=== PATIENT | male | born 1965 | race Caucasian/White ===

== ENCOUNTER 2020-10-27 15:14 | Inpatient (IN) | payer BC ==
[~2020-10-27] VITALS: Ht 177.8 cm; Wt 78.2 kg
[~2020-10-27 15:14] MED LIST: ALPR0.255 PO; ALPR1TAB7 PO; CLIN300C12 PO; CLOP75TA15 PO; METO-356 PO; METO25TA6 PO; QUET300T2 PO; ROSU5TAB PO; ZALE10CA28 PO
--- NOTE | 2020-10-27 15:21 | NUR ---
Patient arrived via RA 99 for palpitations, patient able to transfer from [facility] to [facility] with assistance, MD at bedside for assessment
[2020-10-27] MEDS ORDERED: IV NORMAL SALINE 1000 ML BAG IV ONE (15:30)
[2020-10-27] MEDS ORDERED: OXYC-133 PO (15:34)
[2020-10-27] MEDS ORDERED: ASPI81TA31 PO (15:34)
[2020-10-27] MEDS ORDERED: ALPR2TAB7 PO (15:34)
[2020-10-27] MEDS ORDERED: FLUO10CA26 PO (15:34)
[2020-10-27] MEDS ORDERED: CYCL15CA23 PO (15:34)
--- NOTE | 2020-10-27 15:37 | NUR ---
Patient noted being transfered to radiology for CT
[2020-10-27 15:53] LABS: BASOPHILS % (AUTO) 0.3 % (0.0-2.0); EOSINOPHILS % (AUTO) 0.3 % (0.0-7.0); HEMATOCRIT 55.9 % (36.7-47.1); HEMOGLOBIN 19.1 g/dL (12.5-16.3); LYMPHOCYTES # (AUTO) 2.1 K/uL (20.0-40.0); LYMPHOCYTES % (AUTO) 17.1 % (20.5-51.5); MEAN CORPUSCULAR HEMOGLOBIN 30.4 uug (23.8-33.4); MEAN CORPUSCULAR HGB CONC 34 g/dL (32.5-36.3); MONOCYTES # (AUTO) 1.3 K/uL (2.0-10.0); MONOCYTES % (AUTO) 10.5 % (0.0-11.0); NEUTROPHILS # (AUTO) 8.9 K/uL (1.8-8.9); NEUTROPHILS % (AUTO) 71.8 % (38.5-71.5); PLATELET COUNT (AUTO) 348 K/uL (152-348); RED BLOOD CELL COUNT(AUTO) 6.28 MIL/uL (4.06-5.63); WHITE BLOOD COUNT (AUTO) 12.4 K/uL (3.6-10.2)
[2020-10-27 16:01] LABS: CARBON DIOXIDE 24 mmol/L (21-32); CHLORIDE 101 mmol/L (98-107); CREATININE 0.9 mg/dL (0.6-1.3); GLUCOSE 105 mg/dL (74-106); UREA NITROGEN, BLOOD 16 mg/dL (7-18)
[2020-10-27 16:06] LABS: ALANINE AMINOTRANSFERASE 22 U/L (16-63); ALKALINE PHOSPHATASE 83 U/L (50-136); ASPARTATE AMINOTRANSFERASE 14 U/L (15-37); BILIRUBIN,DIRECT 0.1 mg/dL (0.0-0.2); BILIRUBIN,TOTAL 0.5 mg/dL (0.2-1.0)
[2020-10-27 16:07] LABS: ETHANOL < 3 MG/DL (0-0)
[2020-10-27 16:08] LABS: ACETAMINOPHEN < 2.0 ug/mL (10-30)
[2020-10-27 16:39] LABS: THYROID STIMULATING HORMONE 2.423 mIU/mL (0.358-3.740)
[2020-10-27] MEDS ORDERED: ONDANSETRON 4 MG/2 ML VIAL IV PRN (18:15)
[2020-10-27] MEDS ORDERED: MAGNESIUM HYDROXIDE 30 ML LIQUID UDC PO PRN (18:15)
[2020-10-27] MEDS ORDERED: ACETAMINOPHEN 325 MG TABLET PO PRN (18:15)
--- NOTE | 2020-10-27 18:16 | NUR ---
patient unable to given urine at this time, covid swab taken and sent to lab
--- NOTE | 2020-10-27 20:05 | NUR ---
Pt. admitted to Med/Surg, under care of Latha Ryder Belongs List completed
--- NOTE | 2020-10-27 20:30 | NUR ---
Received patient via gurney from ED. Admitted for FTT. No s/s of acute distress noted at this time. Patient is AAOX2-3, confused at times. Pt on RA denies SOB. concrete analyst in place, NSR. Provided patient with reorientation to the unit. Safety measures and precautions in place. Bed alarm on, locked in place, and call light within reach.
[2020-10-27] MEDS: CLOPIDOGREL 75 MG TABLET PO SCH (21:42)
[2020-10-27] MEDS: ASPIRIN 81 MG TAB.CHEW PO SCH (21:42)
[2020-10-27] MEDS: FLUOXETINE HCL 10 MG CAPSULE PO SCH (21:42)
[2020-10-27] MEDS: ATORVASTATIN 20 MG TABLET PO SCH (21:42)
[2020-10-27] MEDS: IV NS 1000 ML 1,000 ML IV PRN (21:43)
[2020-10-27 22:30] VITALS: BP 124/78
[2020-10-27] MEDS: METOPROLOL SUCCINATE XL 25 MG TAB.SR.24H PO SCH (22:55)
[2020-10-27] MEDS: ALPRAZOLAM 0.25 MG TABLET PO SCH (22:56)
[2020-10-28] MEDS ORDERED: QUETIAPINE FUMARATE 25 MG TABLET PO ONE
[2020-10-28 00:06] VITALS: BP 124/78
[2020-10-28 04:04] VITALS: BP 127/61
--- NOTE | 2020-10-28 04:10 | NUR ---
Pt yelling out, upset, and agitated. Multiple attempts to redirect and reduce stimuli failed. Notified masonry supervisor physician, PINA Hi. New orders given for Haldol 5mg IM one time. Will administer and continue to monitor patient for s/s of adverse reactions and monitor for safety.
[2020-10-28] MEDS ORDERED: HALOPERIDOL LACTATE 5 MG/1 ML VIAL ONE (04:26)
[2020-10-28] MEDS ORDERED: HALOPERIDOL LACTATE 5 MG/1 ML VIAL IM ONE (04:30)
[2020-10-28 06:20] LABS: BASOPHILS % (AUTO) 0.6 % (0.0-2.0); EOSINOPHILS # (AUTO) 0.1 K/uL (0.0-0.7); EOSINOPHILS % (AUTO) 0.8 % (0.0-7.0); HEMATOCRIT 49.6 % (36.7-47.1); HEMOGLOBIN 16.8 g/dL (12.5-16.3); LYMPHOCYTES # (AUTO) 1.9 K/uL (20.0-40.0); LYMPHOCYTES % (AUTO) 22.7 % (20.5-51.5); MEAN CORPUSCULAR HEMOGLOBIN 30.7 uug (23.8-33.4); MEAN CORPUSCULAR HGB CONC 34 g/dL (32.5-36.3); MEAN CORPUSCULAR VOLUME 90.6 fL (73.0-96.2); MONOCYTES # (AUTO) 0.9 K/uL (2.0-10.0); MONOCYTES % (AUTO) 10.4 % (0.0-11.0); NEUTROPHILS # (AUTO) 5.4 K/uL (1.8-8.9); NEUTROPHILS % (AUTO) 65.5 % (38.5-71.5); PLATELET COUNT (AUTO) 271 K/uL (152-348); RED BLOOD CELL COUNT(AUTO) 5.47 MIL/uL (4.06-5.63); WHITE BLOOD COUNT (AUTO) 8.2 K/uL (3.6-10.2)
--- NOTE | 2020-10-28 06:46 | NUR ---
Patient now resting intermittently. Pt AAOx2-3, disoriented at times yelling out. Continued to provide reorientation. No s/s of acute distress noted at this time. Pt on RA denies SOB. Tele monitor on, NSR and EKG completed this morning. Right FA IV patent and intact. All patient needs were met and attended to. Safety measures maintained and bed alarm on, will endorse to oncoming nurse.
[2020-10-28 07:00] LABS: CREATININE 0.8 mg/dL (0.6-1.3); MAGNESIUM 2.3 mg/dL (1.8-2.4); PHOSPHOROUS 2.3 mg/dL (2.5-4.9); POTASSIUM 3.5 mmol/L (3.5-5.1)
--- NOTE | 2020-10-28 08:00 | NUR ---
CONTINUE 1:1 SITTER AT BEDSIDE, PATIENT STILL NOTED TO BE CONFUSED, MUMBLING TO HIMSELF WITH EYES CLOSED. AWARE THAT HE IS AT [facility], KNOWS HIS NAME, ABLE TO FOLLOW SIMPLE COMMANDS. AWAITING PSYCH CONSULT. DENIES PAIN OR SOB, SR ON MONITOR
[2020-10-28] MEDS: ALPRAZOLAM 0.25 MG TABLET PO SCH ×3 (08:34→17:07)
[2020-10-28] MEDS: ASPIRIN 81 MG TAB.CHEW PO SCH (08:34)
[2020-10-28] MEDS: FLUOXETINE HCL 10 MG CAPSULE PO SCH (08:34)
[2020-10-28] MEDS: CLOPIDOGREL 75 MG TABLET PO SCH (08:35)
[2020-10-28] MEDS: METOPROLOL SUCCINATE XL 25 MG TAB.SR.24H PO SCH (08:38)
[2020-10-28] MEDS: IV NS 1000 ML 1,000 ML IV PRN ×2 (08:48→20:08)
[2020-10-28] MEDS ORDERED: METOPROLOL SUCCINATE XL 25 MG TAB.SR.24H PO SCH (09:00)
--- NOTE | 2020-10-28 11:11 | NUR ---
SEEN BY PINA MELENDEZ FOR FOLLOW-UP ORDERED PSYCH EVAL FOR CONSULT, CONTINUE 1:1 SITTER.
[2020-10-28 12:00] VITALS: BP 112/72
[2020-10-28] MEDS ORDERED: NEUTRA PHOS PACKET PO ONE (12:45)
--- NOTE | 2020-10-28 14:40 | NUR ---
Liability Claims Representative Note: This SW met with the patient today to complete an SS assessment. Reason for assessment is hx of drug use. Patient is a 55 year old male who was BIB by ambulance to the ED, after patient called 911. Patient reports weakness, anxiety, not being able to get out of bed for nearly 10 days, and heart palpitations. 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 When SW entered the patient's room, patient was awake, receptive to speaking with this SW. Patient is oriented x 2-3. Patient knows his name, location, and reason for hospitalization. Patient knew the year, but not the month or day. When asked who the President was, patient stated "Marley". Patient lives alone [place] [id number] [place], [place] [address] [address]. 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 When asked who his employer was, patient stated "I work for myself". Patient has his father Gene listed as his person to contact, , and provided this SW verbal consent to disclose information to patient's father. Patient reports being independent with all ADL's prior to this hospitalization. Patient reports hx of cocaine use, reporting that he last used about 5-7 days ago. Patient could not provide how long he had been using cocaine for. Patient denied use of alcohol or any other drugs, however reported being a smoker for the past 30 years, and deciding to quit about 5 days ago. Patient has never been , and does not have children, however has 5 siblings and about 11-12 nieces and nephews. SW generated a discussion about substance abuse treatment, and patient stated that he has been in treatment in the past, but they haven't worked too well for him. SW offered to provide patient with additional resources on substance abuse treatment, and patient was receptive. Patient denied hx of psychiatric diagnosis, but reported seeking therapy in the past due to some of the challenges her faced when growing up. Discharge plans discussed, and patient would like to return home after this hospitalization. At this time, psychiatry consult is pending. SW to follow-up with the patient and provide him with community resources.
[2020-10-28] MEDS ORDERED: ZOLPIDEM 5 MG TABLET PO PRN (14:45)
[2020-10-28 16:27] VITALS: BP 114/62
[2020-10-28 20:00] VITALS: BP 120/63
[2020-10-28] MEDS: ATORVASTATIN 20 MG TABLET PO SCH (20:03)
[2020-10-29] VITALS: BP 101/68
--- NOTE | 2020-10-29 03:31 | NUR ---
Pt is currently resting in bed. Received AOX2 with sitter at bedside. Pt has been calm throughout shift so far and denies pain or SOB. Does not appear to be having any anxiety at this time. Pt is SR on monitor. On RA sating at 94%. Bed is locked and in lowest position, call light is within reach. No other issues or concerns at this time.
[2020-10-29 04:00] VITALS: BP 107/66
[2020-10-29] MEDS ORDERED: diphenhydrAMINE 25 MG CAP PO ONE (04:30)
[2020-10-29] MEDS: IV NS 1000 ML 1,000 ML IV PRN ×2 (06:05→17:31)
[2020-10-29 07:40] LABS: CREATININE 0.8 mg/dL (0.6-1.3); PHOSPHOROUS 2.4 mg/dL (2.5-4.9); POTASSIUM 3.7 mmol/L (3.5-5.1)
[2020-10-29] MEDS: ALPRAZOLAM 0.25 MG TABLET PO SCH ×2 (08:43→12:54)
[2020-10-29] MEDS: ASPIRIN 81 MG TAB.CHEW PO SCH (08:43)
[2020-10-29] MEDS: CLOPIDOGREL 75 MG TABLET PO SCH (08:43)
[2020-10-29] MEDS: METOPROLOL SUCCINATE XL 25 MG TAB.SR.24H PO SCH (08:44)
[2020-10-29] MEDS ORDERED: FLUOXETINE HCL 20 MG CAPSULE PO SCH (09:00)
[2020-10-29] MEDS ORDERED: FLUOXETINE HCL 10 MG CAPSULE PO SCH (09:00)
[2020-10-29] MEDS ORDERED: LORAZEPAM 2 MG/1 ML VIAL IV ONE (10:30)
[2020-10-29 12:00] VITALS: BP 105/52
--- NOTE | 2020-10-29 12:08 | NUR ---
SW met with the patient today, to provide him with community resources. Patient is awake, alert, oriented, receptive to speaking with this SW. SW provided patient with the following resources for substance abuse treatment programs: [facility], [address] [place] [address]. [place] [address], ; [facility] [address] [facility] [place] [address], ; [facility] [address] [place] [address]. [place] [address], ; [facility] [address] [place] [address], ; [facility] [address] [facility] [place] [address], . Patient was receptive, and stated that he wants to physically get stronger first before starting treatment, but expressed appreciation for the resources provided. SW explored additional psychosocial needs for the patient, and patient stated not have any other concerns or needs at this time. No further SS interventions needed at this time, however SW will remain available, as needed.
[2020-10-29] MEDS ORDERED: NEUTRA PHOS PACKET PO ONE (14:45)
[2020-10-29] MEDS ORDERED: LORAZEPAM 2 MG/1 ML VIAL IV PRN (15:45)
[2020-10-29 16:09] VITALS: BP 103/64
--- NOTE | 2020-10-29 18:33 | NUR ---
PLEASANT AND COOPERATIVE. VSS. DISCUSSED DISCHARGE PLAN TO THE ACUTE REHAB UNIT. VERBALIZED UNDERSTANDING OF PLAN. IV FLUSHED AND PATENT. MD AWARE OF TRANSFER. MEDICATION GIVEN PRESCRIBED. SAFETY PRECAUTIONS IN PLACE. WILL ENDORSE TO ADMITTING ARU NURSE. WILL CONTINUE TO MONITOR.
[2020-10-29] MEDS ORDERED: ACET-2154 PO (19:48)
[2020-10-29] MEDS ORDERED: ATOR20TA PO (20:00)
[2020-10-29] MEDS ORDERED: ONDA4VIA52 IM (20:00)
[2020-10-29] MEDS ORDERED: NORM100I4 IV (20:00)
[2020-10-29] MEDS ORDERED: ZOLP10TA2 PO (20:00)
[2020-10-29] MEDS ORDERED: CLOP75TA15 PO (20:00)
[2020-10-29] MEDS ORDERED: MAGN400O6 PO (20:00)
[2020-10-30] MEDS ORDERED: ALPRAZOLAM 0.25 MG TABLET PO SCH (09:00)
== END 2020-10-29 18:35 | DRG 917 ==
LOC: ER 15:15 → MEDSURG3 20:06 → TELE3 22:10
PROVIDERS: ADMIT Nurse Practitioner Acute Care; ATTEND Nurse Practitioner Acute Care
DX: T42.4X1A Poisoning by benzodiazepines, accidental (unintentional), initial encounter (principal); G92 Toxic encephalopathy; F33.2 Major depressive disorder, recurrent severe without psychotic features; F13.239 Sedative, hypnotic or anxiolytic dependence with withdrawal, unspecified; E86.0 Dehydration; R62.7 Adult failure to thrive; I25.10 Atherosclerotic heart disease of native coronary artery without angina pectoris; F41.9 Anxiety disorder, unspecified; Z95.5 Presence of coronary angioplasty implant and graft; F14.10 Cocaine abuse, uncomplicated; Z79.02 Long term (current) use of antithrombotics/antiplatelets; Z79.82 Long term (current) use of aspirin; Z86.73 Personal history of transient ischemic attack (TIA), and cerebral infarction without residual deficits; D72.829 Elevated white blood cell count, unspecified; R53.1 Weakness; F29 Unspecified psychosis not due to a substance or known physiological condition; Z20.822 Contact with and (suspected) exposure to COVID-19; Y92.009 Unspecified place in unspecified non-institutional (private) residence as the place of occurrence of the external cause; Z68.24 Body mass index [BMI] 24.0-24.9, adult
CPT/HCPCS: 36415; 70030-TC; 70450; 71045; 72125; 83605; 83735; 84100; 84443; 85025; 85730; 87040; 93005; 93307; G0378; G0480; J1630; J2060; J7030; Q0163

== ENCOUNTER 2020-10-29 15:42 | Inpatient (IN) | payer BC ==
[~2020-10-29] VITALS: Ht 177.8 cm; Wt 81.6 kg
[~2020-10-29 15:42] MED LIST changes: +ALPR2TAB7 PO; +ASPI81TA31 PO; -CLIN300C12 PO; +CYCL15CA23 PO; +FLUO10CA26 PO; -METO25TA6 PO; +OXYC-133 PO
[2020-10-29] MEDS ORDERED: Z GUARD REMEDY PASTE 57 GM TUBE TOP PRN (19:45)
[2020-10-29] MEDS ORDERED: ACET-2154 PO (19:48)
[2020-10-29] MEDS ORDERED: NORM100I4 IV (20:00)
[2020-10-29] MEDS ORDERED: ZOLP10TA2 PO (20:00)
[2020-10-29] MEDS ORDERED: ATOR20TA PO (20:00)
[2020-10-29] MEDS ORDERED: CLOP75TA15 PO (20:00)
[2020-10-29] MEDS ORDERED: MAGN400O6 PO (20:00)
[2020-10-29] MEDS ORDERED: ONDA4VIA52 IM (20:00)
[2020-10-29 20:17] VITALS: BP 116/69
--- NOTE | 2020-10-29 20:30 | NUR ---
Relieved report from day shift nurse. Pt admitted ARU DX: Generalized weakness, debility. No s/s of acute distress noted at this time. Patient is AAOX4. Pt on RA denies SOB. Provided patient with reorientation to the unit. MD environmental remediation specialist made aware pending med recon. Dr. Powell notified of new admission orders. Skin assessment completed, skin intact. Belongings list completed and placed in chart. Safety measures and precautions in place. Bed alarm on, locked in place, and call light within reach. Routine admission care done. Plan of care initiated.
[2020-10-29] MEDS ORDERED: ATORVASTATIN 20 MG TABLET PO SCH (21:00)
[2020-10-29] MEDS ORDERED: QUETIAPINE FUMARATE 100 MG TABLET PO SCH (21:00)
[2020-10-29] MEDS: LORAZEPAM 1 MG TABLET PO PRN (21:49)
[2020-10-29] MEDS ORDERED: ALPRAZOLAM 0.25 MG TABLET PO ONE (23:00)
--- NOTE | 2020-10-29 23:00 | NUR ---
Pt has been concerned about receiving Ativan and Xanax. Notified Dr. Latha Ryder, with new orders. All due medication administered. Pt remains calm at the moment and denies pain or SOB. Does not appear to be having any anxiety at this time. Bed is locked and in lowest position, call light is within reach. No other issues or concerns at this time.
--- NOTE | 2020-10-30 01:53 | NUR ---
Administered Xanax, per pt request, unable to sleep. Will continue to monitor throughout the night.
[2020-10-30 05:11] VITALS: BP 108/65
[2020-10-30 08:00] VITALS: BP 111/64
[2020-10-30 08:28] VITALS: BP 111/65
[2020-10-30] MEDS ORDERED: FLUOXETINE HCL 20 MG CAPSULE PO SCH (09:00)
[2020-10-30] MEDS ORDERED: ASPIRIN 81 MG TAB.CHEW PO SCH (09:00)
[2020-10-30] MEDS ORDERED: METOPROLOL SUCCINATE XL 25 MG TAB.SR.24H PO SCH ×2 (09:00)
[2020-10-30] MEDS ORDERED: CLOPIDOGREL 75 MG TABLET PO SCH (09:00)
[2020-10-30] MEDS: LORAZEPAM 1 MG TABLET PO PRN (10:56)
--- NOTE | 2020-10-30 10:56 | NUR ---
PATIENT ALERT AND ORIENTED STATED FEELING ANXIOUS MEDICATED WITH ATIVAN PO ORDERED REASSURED AND MADE COMFORTABLE WILL CONTINUE TO OBSERVE.
--- NOTE | 2020-10-30 12:27 | NUR ---
PATIENT IS EXPRESSING THAT HE WILL NOT BE ABLE TO STAY HERE IN THE HOSPITAL FOR 2 WEEKS BECAUSE HE DOES NOT HAVE CLOTHES TO WEAR ASKED HIM IF HE HAS ANYONE THAT CAN DROP OFF SOME CLOTHES FOR HIM STATED HE HAS NO ONE SO I FOUND HIM SOME TOPS BUT WAS UNABLE TO FIND PANTS ADVISED HIM TO MANAGE THE HOSPITAL PJ FOR NOW ENCOURAGED HIM TO PARTICIPATE IN THE PT/OT SERVICES ORDERED FOR HIS BENEFIT FOR NOW ADVISED HIM THAT HE DID NOT HAVE TO STAY HERE FOR 2 WEEKS BUT TO GIVE HIS RECOVERY AND THERAPY A CHANCE AND IF HE IS GETTING BETTER FASTER THEN HE MIGHT BE DISCHARGED SOONER AND HE EXPRESSED UNDERSTANDING.
--- NOTE | 2020-10-30 14:15 | NUR ---
CALLED AND SPOKE WITH CHUCK THE REHAB COLOR DEPOSITING MACHINE TENDER MEDICAL COST CONSULTANT AND HE STATED THAT IT WAS OKAY FOR THE PATIENT TO GO OUT ON PASS AND THAT PATIENT HAS INFORMED HIM THAT HE NEEDED TO SEE HIS AUDIO EXPERIENCE EXPERT FOR SOME HOUSE WORK AND THAT IT WAS OKAY FOR HIM TO GO FOR 4 HOURS HE JUST NEEDED TO SIGN THE OUT ON PASS FORM PATIENT NOTIFIED
--- NOTE | 2020-10-30 14:30 | NUR ---
PATIENT SIGNED THE PASS RELEASE FORM AND ESCORTED TO THE FRONT LOBBY AND WAS PICKED UP BY HIS FRIEND MIROSLAVA CORNER FORMER STATED WILL CALL ME SOON HE HAS SITUATED HIS ISSUES.
--- NOTE | 2020-10-30 16:30 | NUR ---
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
--- NOTE | 2020-10-30 17:24 | NUR ---
DR RUIZ HERE AND AWARE THAT PATIENT IS STILL OUT ON PASS AT THIS TIME
--- NOTE | 2020-10-30 18:30 | NUR ---
CALLED PATIENT AND INQUIRED FROM HIM WHEN HE WAS COMING BACK AND HE STATED NOT TONIGHT BECAUSE HE IS NOT FINISHED WITH WHAT HE IS DOING AT HIS HOUSE WILL CALL US TOMORROW TO LET US KNOW HIS DECISION SO CALLED CHUCK THE REHAB DOLLY DRIVER AND AL HELLER BOTH NOTIFIED THAT PATIENT HAS DECIDED NOT TO COME BACK TODAY
--- NOTE | 2020-10-30 18:53 | NUR ---
CALL RECEIVED FROM CHUCK COMMODITY ANALYST STATED PATIENT SHOULD BE DISCHARGED FROM THE SYSTEM AMA
== END 2020-10-30 18:54 | disposition left against medical advice (07) | DRG 947 ==
PROVIDERS: ADMIT Physical Medicine & Rehabilitation Pain Medicine; ATTEND Physical Medicine & Rehabilitation Pain Medicine
DX: R53.1 Weakness (principal); G92 Toxic encephalopathy; F13.259 Sedative, hypnotic or anxiolytic dependence with sedative, hypnotic or anxiolytic-induced psychotic disorder, unspecified; E86.0 Dehydration; F14.10 Cocaine abuse, uncomplicated; F41.9 Anxiety disorder, unspecified; R62.7 Adult failure to thrive; F32.9 Major depressive disorder, single episode, unspecified; Z95.5 Presence of coronary angioplasty implant and graft; Z86.73 Personal history of transient ischemic attack (TIA), and cerebral infarction without residual deficits; I25.10 Atherosclerotic heart disease of native coronary artery without angina pectoris

== ENCOUNTER 2021-03-26 09:34 | Emergency (ER) | payer BC ==
[~2021-03-26] VITALS: Ht 180.3 cm; Wt 90.7 kg
[~2021-03-26 09:34] MED LIST changes: +ACET-2154 PO; +ATOR20TA PO; +MAGN400O6 PO; +NORM100I4 IV; +ONDA4VIA52 IM; -ZALE10CA28 PO; +ZOLP10TA2 PO
[2021-03-26] MEDS ORDERED: LIDOCAINE 5% PATCH TD ONE ×2 (10:00→10:15)
[2021-03-26] MEDS ORDERED: ONDANSETRON 4 MG/2 ML VIAL IV ONE (10:00)
[2021-03-26] MEDS ORDERED: IV NORMAL SALINE 1000 ML BAG IV ONE (10:00)
[2021-03-26] MEDS ORDERED: CARB-110 PO (10:03)
[2021-03-26] MEDS ORDERED: LORA2TAB95 PO (10:03)
[2021-03-26] MEDS ORDERED: ZAFI20TA13 PO (10:03)
[2021-03-26] MEDS ORDERED: ONDANSETRON 4 MG/2 ML VIAL ONE (10:15)
[2021-03-26 10:17] LABS: HEMATOCRIT 50.1 % (36.7-47.1); MEAN CORPUSCULAR HEMOGLOBIN 31.4 uug (23.8-33.4); MEAN CORPUSCULAR VOLUME 90.2 fL (73.0-96.2); PLATELET COUNT (AUTO) 296 K/uL (152-348)
[2021-03-26 10:23] LABS: POTASSIUM 3.8 mmol/L (3.5-5.1)
[2021-03-26 10:25] LABS: ETHANOL < 3 MG/DL (0-0)
[2021-03-26 10:29] LABS: BILIRUBIN,DIRECT 0.1 mg/dL (0.0-0.2); BILIRUBIN,TOTAL 0.7 mg/dL (0.2-1.0); TOTAL PROTEIN, SERUM 8.3 g/dL (6.4-8.2)
--- NOTE | 2021-03-26 10:29 | NUR ---
Pt YONY VELASQUEZ, reports pt had cocaine approx 60 hours ago, feels like he is "withdrawing." Usually uses benzos but has not taken any for 4 days, has not eaten in 5 days. Pt also c/o distended stomach and dysuria. Pt denies CP, SOB, dizziness, no distress noted, but pt appears very anxious.
[2021-03-26] MEDS ORDERED: MORPHINE SULFATE 4 MG/1 ML DISP.SYRIN IV ONE (11:00)
[2021-03-26] MEDS ORDERED: MORPHINE SULFATE 4 MG/1 ML DISP.SYRIN ONE (11:30)
[2021-03-26] MEDS ORDERED: LORAZEPAM 0.5 MG TABLET PO ONE (11:30)
[2021-03-26 11:46] LABS: *BILIRUBIN,URIN NEGATIVE (NEGATIVE); *BLOOD, URINE NEGATIVE (NEGATIVE); *CLARITY,URINE CLEAR (CLEAR); *COLOR,URINE YELLOW (YELLOW); *KETONES,URINE 1+ (NEGATIVE); *UROBILINOGEN,URINE 0.2 E.U./dl (NORMAL); LEUKOCYTE ESTERASE ,URINE NEGATIVE (NEGATIVE); NITRITE, URINE NEGATIVE (NEGATIVE); UGLUCOSE NEGATIVE (NEGATIVE)
[2021-03-26] MEDS ORDERED: LORAZEPAM 0.5 MG TABLET ONE (11:52)
[2021-03-26] MEDS ORDERED: HYDR-3641 GT (12:03)
[2021-03-26] MEDS ORDERED: ONDA4TAB5 PO (12:03)
[2021-03-26] MEDS ORDERED: ACET-2154 PO (12:03)
[2021-03-26 12:24] LABS: *AMPHETAMINE, URINE NEGATIVE (NEGATIVE); *CANNABINOID, URINE NEGATIVE (NEGATIVE); *COCCAINE, URINE POSITIVE (NEGATIVE); *OPIATE, URINE NEGATIVE (NEGATIVE); *PHENCYCLIDINE SCREEN,URINE NEGATIVE (NEGATIVE)
--- NOTE | 2021-03-26 12:40 | NUR ---
Removed IV intact, site okay, bandaged.
--- NOTE | 2021-03-26 12:50 | NUR ---
Gave pt RX and d/c instructions, pt verbalized understanding.
[2021-03-26 13:01] VITALS: BP 135/85
[2021-03-27] MEDS ORDERED: CYCL10TA9 PO (23:28)
== END 2021-03-26 13:00 | disposition home or self-care (01) ==
LOC: ER 09:36
DX: N20.0 Calculus of kidney (principal); F41.0 Panic disorder [episodic paroxysmal anxiety]; K76.0 Fatty (change of) liver, not elsewhere classified; I10 Essential (primary) hypertension; Z79.82 Long term (current) use of aspirin; Z79.899 Other long term (current) drug therapy; Z79.02 Long term (current) use of antithrombotics/antiplatelets; I25.10 Atherosclerotic heart disease of native coronary artery without angina pectoris; Z95.5 Presence of coronary angioplasty implant and graft; F14.10 Cocaine abuse, uncomplicated; I25.2 Old myocardial infarction; Z86.73 Personal history of transient ischemic attack (TIA), and cerebral infarction without residual deficits
CPT/HCPCS: 36415; 74176; 80048; 80076; 80307; 80320; 81003; 83605; 83690; 85025; 96361; 96374; 96375; 99284; J2270; J2405; G0480; J7030

== ENCOUNTER 2021-03-27 18:40 | Inpatient (IN) | payer BC ==
[~2021-03-27] VITALS: Ht 180.3 cm; Wt 90.7 kg
[~2021-03-27 18:40] MED LIST changes: +CARB-110 PO; +HYDR-3641 GT; +LORA2TAB95 PO; +ONDA4TAB5 PO; +ZAFI20TA13 PO
--- NOTE | 2021-03-27 18:50 | NUR ---
at bedside for assessment
[2021-03-27] MEDS ORDERED: LORAZEPAM 2 MG/1 ML VIAL IM ONE (19:00)
--- NOTE | 2021-03-27 19:04 | NUR ---
Xray at bedside.
[2021-03-27] MEDS ORDERED: LORAZEPAM 2 MG/1 ML VIAL ONE (19:08)
[2021-03-27 19:19] LABS: HEMATOCRIT 52.1 % (36.7-47.1); MEAN CORPUSCULAR HEMOGLOBIN 31.7 uug (23.8-33.4); MEAN CORPUSCULAR VOLUME 90.8 fL (73.0-96.2); PLATELET COUNT (AUTO) 279 K/uL (152-348)
[2021-03-27 19:23] LABS: CREATININE 1.2 mg/dL (0.6-1.3); POTASSIUM 3.4 mmol/L (3.5-5.1)
[2021-03-27] MEDS ORDERED: IV NORMAL SALINE 1000 ML BAG IV ONE (19:30)
[2021-03-27 19:35] LABS: BILIRUBIN,DIRECT 0.1 mg/dL (0.0-0.2); BILIRUBIN,TOTAL 0.6 mg/dL (0.2-1.0); TOTAL PROTEIN, SERUM 7.5 g/dL (6.4-8.2)
[2021-03-27] MEDS ORDERED: POTASSIUM CHLORIDE 20 MEQ TAB.PRT.SR ONE (19:42)
[2021-03-27] MEDS ORDERED: POTASSIUM CHLORIDE 20 MEQ TAB.PRT.SR PO ONE (19:45)
[2021-03-27] MEDS ORDERED: CLOPIDOGREL 75 MG TABLET PO ONE (20:15)
[2021-03-27] MEDS ORDERED: METOPROLOL TARTRATE 50 MG TABLET PO ONE (20:15)
[2021-03-27] MEDS ORDERED: ASPIRIN 81 MG TAB.CHEW PO ONE (20:15)
[2021-03-27] MEDS ORDERED: CLOPIDOGREL 75 MG TABLET ONE (20:24)
[2021-03-27] MEDS ORDERED: ASPIRIN 81 MG TAB.CHEW ONE (20:24)
[2021-03-27] MEDS ORDERED: METOPROLOL TARTRATE 50 MG TABLET ONE (20:25)
[2021-03-27 20:36] LABS: *AMPHETAMINE, URINE NEGATIVE (NEGATIVE); *CANNABINOID, URINE NEGATIVE (NEGATIVE); *COCCAINE, URINE POSITIVE (NEGATIVE); *OPIATE, URINE NEGATIVE (NEGATIVE); *PHENCYCLIDINE SCREEN,URINE NEGATIVE (NEGATIVE)
[2021-03-27] MEDS ORDERED: LORAZEPAM 0.5 MG TABLET PO ONE (21:15)
[2021-03-27] MEDS ORDERED: LORAZEPAM 1 MG TABLET ONE (21:20)
[2021-03-27] MEDS ORDERED: CYCL10TA9 PO (23:28)
--- NOTE | 2021-03-28 00:17 | NUR ---
Dr. Cabello on panel call with Cynthia Hi STAINED GLASS PAINTER. Patient accepted for admission to [facility], diagnosis: chestpain rule out.
[2021-03-28] MEDS ORDERED: NITROGLYCERIN 0.4 MG/TAB BOTTLE SL PRN (00:30)
[2021-03-28] MEDS ORDERED: MORPHINE SULFATE 2 MG/1 ML DISP.SYRIN IV PRN (00:30)
[2021-03-28] MEDS ORDERED: ACETAMINOPHEN 325 MG TABLET PO PRN ×2 (00:30→00:45)
[2021-03-28] MEDS ORDERED: MAG HYDROX/AL HYDROX/SIMETH 30 ML LIQUID UDC PO PRN (00:30)
[2021-03-28] MEDS ORDERED: ONDANSETRON 4 MG/2 ML VIAL IV PRN (00:30)
[2021-03-28] MEDS ORDERED: DOCUSATE SODIUM 100 MG CAPSULE PO PRN (00:30)
[2021-03-28] MEDS ORDERED: CYCLOBENZAPRINE HCL 10 MG TABLET PO PRN (00:45)
--- NOTE | 2021-03-28 01:21 | NUR ---
Report given to Sadie MARIE Tele.
[2021-03-28] MEDS ORDERED: ALPRAZOLAM 0.5 MG TABLET PO PRN (02:15)
[2021-03-28] MEDS ORDERED: QUETIAPINE FUMARATE 100 MG TABLET PO PRN (02:15)
[2021-03-28 02:20] VITALS: BP 124/78
--- NOTE | 2021-03-28 03:00 | NUR ---
RECEIVED REPORT FROM ER NURSE ELSA PT IS ALERT AND ORIENTED X4 PT WAS GIVEN 1 LITER OF NS IN ER ALONG WITH WITH 20 MEQ OF POTASSIUM FOR POTASSIUM LEVEL OF 3.4 AND AFTERWARDS ALONG GIVEN ATIVAN 2MG FOR ANXIETY. PT TROPONIN LEVELS WERE FIRST ONE WAS NEGATIVE THE SECOND ONE TROPONIN ONE WAS .024.AM LABS ARE SCHEDULED FOR THIS AM , PT WAS GIVEN MORPHINE FOR PAIN 1MG PAIN OF 8/10. PT REASSESSED IN 30 MINUTES PATIENT IS ASLEEP. WILL CONTINUE TO MONITOR FOR SAFETY AND OTHER NEEDS PATIENT MAY HAVE.
[2021-03-28 04:45] VITALS: BP 112/67
--- NOTE | 2021-03-28 06:30 | NUR ---
PT WALKING AROUND THE UNIT NO SIGNS OF DISTRESS NOTED WILL CONTINUE TO MONITOR.
[2021-03-28 06:52] LABS: POTASSIUM 4.1 mmol/L (3.5-5.1)
[2021-03-28 07:01] LABS: THYROID STIMULATING HORMONE 2.759 mIU/mL (0.358-3.740)
[2021-03-28 07:04] LABS: BILIRUBIN,TOTAL 0.4 mg/dL (0.2-1.0); MAGNESIUM 2.7 mg/dL (1.8-2.4); PHOSPHOROUS 2.6 mg/dL (2.5-4.9)
[2021-03-28 07:05] LABS: MEAN CORPUSCULAR HEMOGLOBIN 31.6 uug (23.8-33.4); MEAN CORPUSCULAR VOLUME 92.7 fL (73.0-96.2); PLATELET COUNT (AUTO) 258 K/uL (152-348)
--- NOTE | 2021-03-28 07:27 | NUR ---
WILL GIVE REPORT TO AM NURSE.
--- NOTE | 2021-03-28 07:30 | NUR ---
RECEIVED REPORT FROM URBAN REDEVELOPMENT SPECIALIST NURSE. PT IN BED, AWAKE, ALERT AND ORIENTED X4. NURSE IDENTIFIED PATIENT BY NAME, BIRTHDAY AND MEDICAL NUMBER. NURSE INTRODUCED SELF AND ADDRESSED ALL PATIENT CONCERNS. NO COMPLAIN OF PAIN NOTED. NO SIGNS OF DISTRESS OR SOB NOTED. PT ABLE TO AMBULATE BY SELF. PT ON ROOM AIR AND SATURATING AT 98%. PT ANXIOUS TO LEAVE TODAY. WILL CONTINUE TO FOLLOW UP WITH PLAN OF CARE.
[2021-03-28 08:55] VITALS: BP 111/66
[2021-03-28] MEDS ORDERED: ASPIRIN 81 MG TAB.CHEW PO SCH (09:00)
[2021-03-28] MEDS ORDERED: FLUOXETINE HCL 10 MG CAPSULE PO SCH (09:00)
[2021-03-28] MEDS ORDERED: METOPROLOL SUCCINATE XL 25 MG TAB.SR.24H PO SCH (09:00)
[2021-03-28] MEDS ORDERED: CLOPIDOGREL 75 MG TABLET PO SCH (09:00)
--- NOTE | 2021-03-28 09:20 | NUR ---
PT WAS SEEN BY DR. HINES. PER PHYSICIAN, PT IS CLEARED WITH CARDIAC ASPECT. NURSE NOTIFIED DR. MCCOY. SHE WILL SEE PATIENT WHEN SHE ARRIVES.
[2021-03-28 12:00] VITALS: BP 105/82
[2021-03-28 16:00] VITALS: BP 114/70
--- NOTE | 2021-03-28 17:05 | NUR ---
DISCHARGE ORDERS IN. PREPARED DISCHARGE. VITAL SIGN DONE. NO DISTRESS OR SOB NOTED. PT VERBALIZED HAPPINESS AND EXCITEMENT. NO COMPLAIN NOTED AT THIS TIME. PT SIGNED PAPERWORK AND GATHERED PERSONAL BELONGINGS. PT LEFT WITH GIRLFRIEND IN PRIVATE CAR.
[2021-03-28] MEDS ORDERED: SIMVASTATIN 10 MG TABLET PO SCH (21:00)
== END 2021-03-28 17:00 | disposition home or self-care (01) | DRG 880 ==
LOC: ER 18:41 → TELE3 23:55
PROVIDERS: ADMIT Student in an Organized Health Care Education/Training Program; ATTEND Student in an Organized Health Care Education/Training Program
DX: F41.9 Anxiety disorder, unspecified (principal); I25.2 Old myocardial infarction; Z95.5 Presence of coronary angioplasty implant and graft; Z79.82 Long term (current) use of aspirin; Z86.73 Personal history of transient ischemic attack (TIA), and cerebral infarction without residual deficits; I25.10 Atherosclerotic heart disease of native coronary artery without angina pectoris; F14.90 Cocaine use, unspecified, uncomplicated; N20.0 Calculus of kidney; Z20.822 Contact with and (suspected) exposure to COVID-19; D72.829 Elevated white blood cell count, unspecified; R07.89 Other chest pain
CPT/HCPCS: 36415; 70030-TC; 71045; 83735; 84100; 84443; 85025; 93005; A4663; G0378; J2060; J2270; J7030